=== PATIENT | male | born 1935 | race Caucasian/White ===

== ENCOUNTER → 2020-06-05 09:24 | Outpatient (CLI) | payer MEDICARE, OTHER, SELFPAY ==
[2020-06-06 12:02] LABS: COVID19 Sendout Not Detected (Not Detected)
== END ==
PROVIDERS: Visit Provider Physician Assistant
DX: Z11.59 Encounter for screening for other viral diseases (principal)
CPT/HCPCS: 87635

== ENCOUNTER → 2020-06-06 08:36 | Outpatient (CLI) | payer MEDICARE, OTHER, SELFPAY ==
[2020-06-06 09:08] LABS: Bacteria Urine None Seen; RBC Urine None Seen (0-5/HPF); WBC Urine None Seen (0-5/HPF)
[2020-06-06 10:08] LABS: Add Manual Diff / Slide Review NO; Basophils Absolute Auto 0 /uL (0-100); Basophils Percent Auto 0.8 % (0-2); Eosinophils Absolute Auto 100 /uL (0-450); Eosinophils Percent Auto 2.5 % (2-4); Hematocrit 41.4 % (41-53); Hemoglobin 13.8 g/dL (13.5-17.5); Lymphocytes Absolute Auto 1300 /uL (1100-4500); Lymphocytes Percent Auto 32.3 % (25-40); Mean Corpuscular HGB Conc 33.3 % (30-36); Mean Corpuscular Hemoglobin 32.1 PG (26-34); Mean Corpuscular Volume 96.3 fL (80-100); Monocytes Absolute Auto 400 /uL (0-900); Monocytes Percent Auto 10.5 % (3-14); Neutrophils Absolute Auto 2100 /uL (1500-7000); Neutrophils Percent Auto 53.9 % (50-75); Platelet Count 180 X10^3/uL (150-400); Red Cell Distribution Width 13.2 % (11.6-14.8); White Blood Cell Count 3.9 X10^3/uL (4.5-11.0)
[2020-06-06 10:47] LABS: Alanine Aminotransferase 26 IU/L (<50); Albumin Globulin Ratio 1.4 (1.0-2.8); Alkaline Phosphatase 76 U/L (38-126); Aspartate Aminotransferase 33 IU/L (17-59); BUN Creatinine Ratio 30.4 (6-22); Bilirubin Total 0.9 mg/dL (0.2-1.3); Bilirubin Unconjugated 0.8 mg/dL (0.0-1.1); Blood Urea Nitrogen 24 mg/dL (9-20); Calcium 9.3 mg/dL (8.4-10.2); Carbon Dioxide 30 mmol/L (22-32); Chloride 104 mmol/L (98-107); Cholesterol 210 mg/dL (140-199); Estimated Glomerular Filt Rate > 60.0 mL/min (>60); Globulin 2.8 g/dL (1.7-4.1); Glucose 79 mg/dL (80-110); HDL Cholesterol 56 mg/dL (40-60); HEMOLYSIS < 15 (0-50); LDL Cholesterol Calculated 137 mg/dL (<100); Potassium 4.8 mmol/L (3.4-5.1); Sodium 137 mmol/L (137-145); Total Protein 6.8 g/dL (6.3-8.2); Triglycerides 85 mg/dL (35-150)
[2020-06-06 11:05] LABS: Appearance Urine UA CLEAR; Bilirubin Urine UA NEGATIVE (NEGATIVE); Color Urine UA YELLOW; Glucose Urine UA NEGATIVE (Negative); Ketones Urine UA NEGATIVE (NEGATIVE); Leukocyte Esterase Urine UA NEGATIVE (NEGATIVE); Nitrite Urine UA NEGATIVE (Negative); Occult Blood Urine UA TRACE-LYSED (Negative); Protein Urine UA NEGATIVE (Negative); Specific Gravity Urine UA 1.015 (1.000-1.035); Urobilinogen Urine UA 0.2 E.U./dL (0.2)
[2020-06-06 11:10] LABS: TSH w/ Reflex to FT4 4.22 uIU/mL (0.47-4.68)
[2020-06-06 11:16] LABS: Amorphous Sediment Urine 2+; Culture Indicated Urine Cult Not Indicated
[2020-06-07 08:09] LABS: PSA Ultrasensitive <0.014 ng/mL (0.000-4.000)
== END ==
PROVIDERS: PCP Internal Medicine; Referring Provider Internal Medicine; Visit Provider Internal Medicine
DX: Z00.00 Encounter for general adult medical examination without abnormal findings (principal)
CPT/HCPCS: 36415; 80053; 80061; 80076; 81001; 84153; 84443; 85025

== ENCOUNTER → 2020-09-12 10:34 | Outpatient (CLI) | payer MEDICARE, OTHER, SELFPAY ==
--- NOTE | 2020-09-12 10:36 | DI.RAD.S_ITS ---
PROCEDURE: XR SHOULDER LT MIN 2V INDICATIONS: Left shoulder pain TECHNIQUE: 3 views of the shoulder were acquired. COMPARISON: None. FINDINGS: Bones: No fractures or dislocations. No suspicious bony lesions. Mild acromioclavicular and glenohumeral joint degeneration. Visualized ribs appear intact. Soft tissues: No suspicious soft tissue calcifications. IMPRESSION: No acute osseous abnormalities. Mild degenerative joint disease. Dictated by: Willam Hart M.D. on 09/12/2020 at 13:33 Approved by: Willam Hart M.D. on 09/12/2020 at 13:34
== END ==
PROVIDERS: PCP Family Medicine; Referring Provider Family Medicine; Visit Provider Family Medicine
DX: S46.912A Strain of unspecified muscle, fascia and tendon at shoulder and upper arm level, left arm, initial encounter (principal); M25.512 Pain in left shoulder; M19.012 Primary osteoarthritis, left shoulder
CPT/HCPCS: 73030

== ENCOUNTER → 2020-10-10 10:45 | Outpatient (CLI) | payer MEDICARE, OTHER, SELFPAY ==
--- NOTE | 2020-10-10 11:22 | DIET.PN ---
Dietary Progress Note Assessment: 84y M referred to nutrition for help c his chronic IBS which started 22y ago after parasitic infection. Pt has been having these sx for for 22y, worked out what is bothering him and what is not over the past 5y. Still has sx 4-5x/mo often when accidentally exposed to trigger foods. IBS sx show up the next morning around 11am sometimes all day or even two days which consists of leaking out of the butt diarrhea. Pt also experiences upper abdominal bloating right away after drinking coffee, spices, apples different than the IBS sx foods, often when eating too fast. started getting [employer] but having issues c the spices. cannot tolerate most liquid foods, no fruit juice or most F/V, beans, spices, dairy coffee causes diarrhea but 5h energy or Diet Pepsi do not had prostate cancer c removal but not radiation so has to urinate frequently HT: 6' WT: 148# UBW: 165# prior. Pt would like to be 155# Usual Day: glass of water c acv B(8am): medium ripe banana, quinoa c jazlyn seeds, protein powder, cinnamon c blueberries and nuts (walnuts and almond) and slice of dark bread c blackberry and coconut oil sips Diet Pepsi snack: nuts or pistachios L: dark bread sandwich c trevor, Rene dairy-free cheese, peppered turkey, slice of pear, radishes, coconut oil, sardines, dark chocolate and water but 20min before or after salmon and sardines 2x/w Sn: 1/2 apple, pistachios, cashews, banana D: potatoes or rice c 2x/w salmon, cod, cutlet, asparagus RD Impression: Pt has a good idea of foods which do and do not trigger sx. Pts sx not related to specific FODMAP categories, however pt appears to have difficulty with a variety of sugars (mono-, di-, and oligosaccharides) plus spices (chilis and tumeric mainly). Pts diet has good representation from all food groups and is, besides the daily Diet Pepsi, unrefined without food additives. Nutrition Diagnosis: intolerance to a variety of sugars (mono-, di-, and oligosaccharides) r/t GI dysfunction aeb pt dx c IBS x22y, intolerance to fruit, fruit juices, beans, honey, pt exposure results in intractable diarrhea for up to 48h. Interventions: 1. Continue following his diet. Pt will use FODMAP food list to assess any further intolerances and to work towards identifying amounts of questionable foods which he is able to tolerate. 2. Pt will look at and try Orgain protein powder as an option. Pt was unsure about how different fats supported his cardiovascular health. Encouraged pt to consume olive oil and fatty fish mostly to support healthy weight and cardiovascular health. 3. Encouraged pt to source banana flakes to use to manage diarrhea as this acts like Immodium but will not cause constipation. Monitoring/Evaluations: pt will call in 3w to schedule f/u
== END ==
PROVIDERS: PCP Family Medicine; Referring Provider Family Medicine; Visit Provider Family Medicine
DX: K58.0 Irritable bowel syndrome with diarrhea (principal); Z71.3 Dietary counseling and surveillance
CPT/HCPCS: 97802

== ENCOUNTER → 2021-11-24 09:57 | Outpatient (CLI) | payer MEDICARE, OTHER, SELFPAY ==
[2021-11-24 10:58] LABS: Add Manual Diff / Slide Review NO; Basophils Absolute Auto 0 /uL (0-100); Basophils Percent Auto 0.6 % (0-2); Eosinophils Absolute Auto 100 /uL (0-450); Eosinophils Percent Auto 2.2 % (2-4); Hematocrit 39.4 % (41-53); Hemoglobin 13.2 g/dL (13.5-17.5); Lymphocytes Absolute Auto 1200 /uL (1100-4500); Lymphocytes Percent Auto 27.6 % (25-40); Mean Corpuscular HGB Conc 33.5 % (30-36); Mean Corpuscular Hemoglobin 31.7 PG (26-34); Mean Corpuscular Volume 94.8 fL (80-100); Monocytes Absolute Auto 400 /uL (0-900); Monocytes Percent Auto 9.7 % (3-14); Neutrophils Absolute Auto 2600 /uL (1500-7000); Neutrophils Percent Auto 59.9 % (50-75); Platelet Count 192 X10^3/uL (150-400); Red Blood Cell Count 4.16 X10^6/uL (4.5-5.9); Red Cell Distribution Width 13.7 % (11.6-14.8); White Blood Cell Count 4.3 X10^3/uL (4.5-11.0)
[2021-11-24 12:07] LABS: Alanine Aminotransferase 43 IU/L (<50); Albumin 3.8 g/dL (3.5-5.0); Albumin Globulin Ratio 1.3 (1.0-2.8); Alkaline Phosphatase 74 U/L (38-126); Aspartate Aminotransferase 42 IU/L (17-59); BUN Creatinine Ratio 35.5 (6-22); Bilirubin Total 0.6 mg/dL (0.2-1.3); Blood Urea Nitrogen 27 mg/dL (9-20); Calcium 8.8 mg/dL (8.4-10.2); Carbon Dioxide 29 mmol/L (22-32); Chloride 105 mmol/L (98-107); Cholesterol 225 mg/dL (140-199); Estimated Glomerular Filt Rate > 60.0 mL/min (>60); Glucose 95 mg/dL (80-110); HDL Cholesterol 46 mg/dL (40-60); HEMOLYSIS < 15 (0-50); LDL Cholesterol Calculated 148 mg/dL (<100); Potassium 4.6 mmol/L (3.4-5.1); Sodium 139 mmol/L (137-145); Total Protein 6.8 g/dL (6.3-8.2); Triglycerides 155 mg/dL (35-150)
[2021-11-24 12:38] LABS: TSH w/ Reflex to FT4 2.92 uIU/mL (0.47-4.68)
[2021-11-25 06:34] LABS: PSA Ultrasensitive <0.006 ng/mL (0.000-4.000)
== END ==
PROVIDERS: PCP Family Medicine; Referring Provider Family Medicine; Visit Provider Family Medicine
DX: E78.2 Mixed hyperlipidemia (principal); Z12.5 Encounter for screening for malignant neoplasm of prostate; G89.29 Other chronic pain; K58.0 Irritable bowel syndrome with diarrhea; M19.012 Primary osteoarthritis, left shoulder; M54.9 Dorsalgia, unspecified; Z00.00 Encounter for general adult medical examination without abnormal findings
CPT/HCPCS: 36415; 80053; 80061; 84153; 84443; 85025; G0103

== ENCOUNTER → 2022-12-31 07:03 | Outpatient (CLI) | payer MEDICARE, SELFPAY ==
[2022-12-31 08:27] LABS: Add Manual Diff / Slide Review NO; Basophils Absolute Auto 0 /uL (0-100); Basophils Percent Auto 0.5 % (0-2); Eosinophils Absolute Auto 100 /uL (0-450); Eosinophils Percent Auto 2.4 % (2-4); Hematocrit 40.3 % (41-53); Hemoglobin 13.8 g/dL (13.5-17.5); Lymphocytes Absolute Auto 1400 /uL (1100-4500); Lymphocytes Percent Auto 34.8 % (25-40); Mean Corpuscular HGB Conc 34.3 % (30-36); Mean Corpuscular Hemoglobin 32.6 PG (26-34); Monocytes Absolute Auto 400 /uL (0-900); Monocytes Percent Auto 9.4 % (3-14); Neutrophils Absolute Auto 2100 /uL (1500-7000); Neutrophils Percent Auto 52.9 % (50-75); Platelet Count 170 X10^3/uL (150-400); Red Blood Cell Count 4.24 X10^6/uL (4.5-5.9); Red Cell Distribution Width 13.2 % (11.6-14.8)
[2022-12-31 08:48] LABS: HEMOLYSIS < 15 (0-50); Iron 124 ug/dL (49-181)
[2022-12-31 08:52] LABS: Alanine Aminotransferase 28 IU/L (<50); Albumin 3.9 g/dL (3.5-5.0); Albumin Globulin Ratio 1.4 (1.0-2.8); Alkaline Phosphatase 89 U/L (38-126); Aspartate Aminotransferase 30 IU/L (17-59); BUN Creatinine Ratio 32.5 (6-22); Blood Urea Nitrogen 25 mg/dL (9-20); C-Reactive Protein Quant < 0.5 mg/dL (<1.0); Calcium 8.9 mg/dL (8.4-10.2); Carbon Dioxide 29 mmol/L (22-32); Chloride 104 mmol/L (98-107); Cholesterol 224 mg/dL (140-199); Estimated Glomerular Filt Rate > 60 mL/min (>60); Globulin 2.7 g/dL (1.7-4.1); Glucose 75 mg/dL (80-110); HDL Cholesterol 50 mg/dL (40-60); HEMOLYSIS < 15 (0-50); LDL Cholesterol Calculated 158 mg/dL (<100); Potassium 4.5 mmol/L (3.4-5.1); Sodium 140 mmol/L (137-145); Total Protein 6.6 g/dL (6.3-8.2); Triglycerides 80 mg/dL (35-150)
[2022-12-31 08:58] LABS: Percent Iron Saturation 42 % (20-50); Total Iron Binding Capacity 295 ug/dL (261-462); Transferrin 208 mg/dL (206-381)
[2022-12-31 09:13] LABS: TSH w/ Reflex to FT4 4.13 uIU/mL (0.47-4.68)
[2022-12-31 09:18] LABS: Ferritin 75 ng/mL (18-464)
[2022-12-31 09:19] LABS: Erythrocyte Sedimentation Rate 9 MM/HR (0-15)
[2023-01-01 07:13] LABS: PSA Ultrasensitive <0.006 ng/mL (0.000-4.000)
== END ==
PROVIDERS: PCP Family Medicine; Referring Provider Family Medicine; Visit Provider Family Medicine
DX: D64.9 Anemia, unspecified (principal); E78.5 Hyperlipidemia, unspecified; Z85.46 Personal history of malignant neoplasm of prostate; G89.29 Other chronic pain; K58.9 Irritable bowel syndrome, unspecified; M54.9 Dorsalgia, unspecified; R15.9 Full incontinence of feces
CPT/HCPCS: 36415; 80053; 80061; 82728; 83540; 83550; 84153; 84443; 85025; 85651; 86140

== ENCOUNTER → 2024-02-08 08:43 | Outpatient (CLI) | payer MEDICARE, SELFPAY ==
[2024-02-08 09:38] LABS: Add Manual Diff / Slide Review NO; Basophils Absolute Auto 0 /uL (0-100); Basophils Percent Auto 0.7 % (0-2); Eosinophils Absolute Auto 200 /uL (0-450); Eosinophils Percent Auto 3.6 % (2-4); Hematocrit 41.1 % (41-53); Hemoglobin 13.8 g/dL (13.5-17.5); Lymphocytes Absolute Auto 1700 /uL (1100-4500); Mean Corpuscular HGB Conc 33.6 % (30-36); Mean Corpuscular Hemoglobin 32.2 PG (26-34); Monocytes Absolute Auto 400 /uL (0-900); Monocytes Percent Auto 9.5 % (3-14); Neutrophils Absolute Auto 2100 /uL (1500-7000); Neutrophils Percent Auto 47.2 % (50-75); Platelet Count 177 X10^3/uL (150-400); Red Blood Cell Count 4.28 X10^6/uL (4.5-5.9); Red Cell Distribution Width 13.3 % (11.6-14.8); White Blood Cell Count 4.4 X10^3/uL (4.5-11.0)
[2024-02-08 09:53] LABS: Alanine Aminotransferase 25 IU/L (<50); Albumin Globulin Ratio 1.4 (1.0-2.8); Alkaline Phosphatase 74 U/L (38-126); Aspartate Aminotransferase 35 IU/L (17-59); BUN Creatinine Ratio 31.1 (6-22); Bilirubin Total 0.9 mg/dL (0.2-1.3); Blood Urea Nitrogen 23 mg/dL (9-20); Calcium 8.8 mg/dL (8.4-10.2); Carbon Dioxide 29 mmol/L (22-32); Chloride 108 mmol/L (98-107); Cholesterol 230 mg/dL (140-199); Estimated Glomerular Filt Rate > 60 mL/min (>60); Globulin 2.9 g/dL (1.7-4.1); Glucose 81 mg/dL (80-110); HDL Cholesterol 51 mg/dL (40-60); HEMOLYSIS < 15 (0-50); LDL Cholesterol Calculated 161 mg/dL (<100); Potassium 4.5 mmol/L (3.4-5.1); Sodium 140 mmol/L (137-145); Total Protein 6.9 g/dL (6.3-8.2); Triglycerides 91 mg/dL (35-150)
[2024-02-08 10:24] LABS: TSH w/ Reflex to FT4 2.63 uIU/mL (0.47-4.68)
[2024-02-09 03:36] LABS: Apolipoprotein B 118 mg/dL (<90)
[2024-02-09 07:36] LABS: PSA Ultrasensitive <0.006 ng/mL (0.000-4.000)
== END ==
PROVIDERS: PCP Family Medicine; Referring Provider Family Medicine; Visit Provider Family Medicine
DX: Z00.00 Encounter for general adult medical examination without abnormal findings; Z85.46 Personal history of malignant neoplasm of prostate; E78.5 Hyperlipidemia, unspecified; K58.9 Irritable bowel syndrome, unspecified; Z90.79 Acquired absence of other genital organ(s)
CPT/HCPCS: 36415; 80053; 80061; 82172; 84153; 84443; 85025

== ENCOUNTER → 2024-06-06 07:17 | Outpatient (CLI) | payer MEDICARE, SELFPAY ==
[2024-06-08 15:11] LABS: Deamidated Gliadin Ab IgA 7 units (0-19); Deamidated Gliadin Ab IgG 4 units (0-19); Immunoglobulin A,Qn 142 mg/dL (61-437); t-Transglutaminase IgA <2 U/mL (0-3)
== END ==
PROVIDERS: PCP Family Medicine; Referring Provider Internal Medicine Gastroenterology; Visit Provider Internal Medicine Gastroenterology
DX: R10.84 Generalized abdominal pain (principal)
CPT/HCPCS: 36415; 82784; 83516

== ENCOUNTER → 2025-02-01 08:58 | Outpatient (CLI) | payer MEDICARE, SELFPAY ==
--- NOTE | 2025-02-01 09:00 | DI.RAD.S_ITS ---
PROCEDURE: XR LUMBAR SPINE 2-3V INDICATIONS: Back pain with loss of bowel/bladder control TECHNIQUE: 3 views of the lumbar spine were acquired. COMPARISON: None. FINDINGS: Bones: There are 5 [id number]-[id number] lumbar vertebral bodies. There is trace L3 on L4 anterolisthesis. Otherwise normal spinal alignment. Mild degenerative changes are present throughout the lumbar spine including endplate sclerosis and osteophytosis. There is mild to moderate intervertebral disc space narrowing throughout the lumbar spine. No compression deformities. Soft tissues: Overlying bowel gas pattern is normal. Scattered atheromatous calcifications are present within the abdominal aorta. IMPRESSION: Mild to moderate degenerative change of the lumbar spine. Dictated by: Valentina Sanchez M.D. on 02/01/2025 at 9:27 Approved by: Valentina Sanchez M.D. on 02/01/2025 at 9:28
--- NOTE | 2025-02-01 09:00 | DI.RAD.S_ITS ---
PROCEDURE: XR HIP W PEL IF DONE BILAT 2V INDICATIONS: Back pain with loss of bowel/bladder control TECHNIQUE: AP pelvis with lateral view(s) of the bilateral hip(s). COMPARISON: None. FINDINGS: Bones: No fractures or dislocations. Pelvic ring appears intact. No suspicious bony lesions. Soft tissues: The visualized bowel gas pattern is normal. No suspicious soft tissue calcifications. Scattered phleboliths are visualized within the pelvis. IMPRESSION: No acute bony abnormality. Dictated by: Valentina Sanchez M.D. on 02/01/2025 at 9:26 Approved by: Valentina Sanchez M.D. on 02/01/2025 at 9:27
== END ==
PROVIDERS: PCP Family Medicine; Referring Provider Family Medicine; Visit Provider Family Medicine
DX: M47.816 Spondylosis without myelopathy or radiculopathy, lumbar region (principal); M54.9 Dorsalgia, unspecified; R32 Unspecified urinary incontinence; R53.1 Weakness
CPT/HCPCS: 72100; 73521

== ENCOUNTER → 2025-02-20 07:06 | Outpatient (CLI) | payer MEDICARE, SELFPAY ==
[2025-02-20 08:08] LABS: Add Manual Diff / Slide Review NO; Hematocrit 37.5 % (41-53); Hemoglobin 13.2 g/dL (13.5-17.5); Lymphocytes Absolute Auto 1700 /uL (1100-4500); Mean Corpuscular HGB Conc 35.1 % (30-36); Mean Corpuscular Hemoglobin 33.2 PG (26-34); Mean Corpuscular Volume 94.6 fL (80-100); Platelet Count 173 X10^3/uL (150-400)
[2025-02-20 08:47] LABS: Cholesterol 223 mg/dL (140-199); HDL Cholesterol 47 mg/dL (40-60); Triglycerides 93 mg/dL (35-150)
[2025-02-20 09:18] LABS: TSH w/ Reflex to FT4 3.63 uIU/mL (0.47-4.68)
[2025-02-20 09:21] LABS: Prostate Specific Antigen < 0.064 ng/mL (0.10-4.00)
== END ==
PROVIDERS: PCP Family Medicine; Referring Provider Family Medicine; Visit Provider Family Medicine
DX: Z00.00 Encounter for general adult medical examination without abnormal findings (principal); M54.50 Low back pain, unspecified; E78.2 Mixed hyperlipidemia; D64.9 Anemia, unspecified; Z90.79 Acquired absence of other genital organ(s); G89.29 Other chronic pain
CPT/HCPCS: 36415; 80061; 82172; 84153; 84443; 85025

== ENCOUNTER → 2025-02-21 12:39 | Outpatient (CLI) | payer MEDICARE, SELFPAY ==
--- NOTE | 2025-02-21 12:40 | DI.MRI.S_ITS ---
PROCEDURE: MR LUMBAR SPINE WO CON INDICATIONS: chronic low back pain, bilateral radiculopathy TECHNIQUE: Noncontrast sagittal T1 spin echo and T2 fast echo, sagittal STIR, and T2 fast spin echo through the lumbar spine. In cases with scoliosis, additional coronal T2 fast spin echo may be performed. COMPARISON: None. FINDINGS: Image quality: Excellent. Alignment and Curvature: There is 4 mm anterolisthesis of L3 on L4. Bone Marrow: There is no marrow edema.. No acute vertebral body compression fractures. Spinal Cord: Conus medullaris terminates at the L1 level. Visualized cord demonstrates normal signal and size. Paraspinous Soft Tissues: No paravertebral masses. T12-L1: Normal appearance. L1-L2: Disc desiccation. Diffuse disc bulge and bilateral facet arthrosis with hypertrophy of ligamentum flavum causing mild central canal stenosis and left worse than right bilateral neural foraminal narrowing. L2-L3: There is disc desiccation and loss of disc height. Diffuse disc bulge and bilateral facet arthrosis with hypertrophy of ligamentum flavum causing [id number] central canal stenosis and right worse than left bilateral neural foraminal narrowing. Bulging disc likely contacting right L2 nerve root. L3-L4: Loss of disc height and disc desiccation. Broad-based disc bulge and left lateral disc herniation with bilateral facet arthrosis causing moderate to severe central canal stenosis, severe left-sided neural foraminal narrowing and yebk-xw-daxkvpaw right-sided neural foraminal narrowing. There is likely compression of left L3 and L4 nerve roots. L4-L5: Loss of disc height and disc desiccation. Broad-based disc bulge and bilateral facet arthrosis with hypertrophy of ligamentum flavum causing moderate to severe central canal stenosis and severe bilateral neural foraminal narrowing. Bulging disc likely contacting bilateral L4 nerve roots. L5-S1: Loss of disc height and disc desiccation. Diffuse disc bulge and bilateral facet arthrosis. No significant central canal stenosis. Mild bilateral neural foraminal narrowing is seen with bulging disc likely contacting bilateral L5 nerve roots. IMPRESSION: 1. No marrow edema. No acute vertebral body compression fracture. Grade 1 anterolisthesis of L3 on L4. 2. Multilevel spondylitic changes throughout lumbar spine causing various degrees of central canal stenosis and bilateral neural foraminal narrowing more notably at L3-4 and L4-5 levels as above. 3. No gross paraspinous soft tissue abnormalities. Dictated by: Jeramie Bautista M.D. on 02/22/2025 at 9:00 Approved by: Jeramie Bautista M.D. on 02/22/2025 at 9:07
== END ==
LOC: MRI 12:39
PROVIDERS: PCP Family Medicine; Referring Provider Family Medicine; Visit Provider Family Medicine
DX: M43.16 Spondylolisthesis, lumbar region (principal); M48.061 Spinal stenosis, lumbar region without neurogenic claudication; M48.07 Spinal stenosis, lumbosacral region; M47.816 Spondylosis without myelopathy or radiculopathy, lumbar region; M47.817 Spondylosis without myelopathy or radiculopathy, lumbosacral region; M54.50 Low back pain, unspecified; G89.29 Other chronic pain
CPT/HCPCS: 72148

== ENCOUNTER → 2025-07-24 15:04 | Outpatient (CLI) | payer MEDICARE, SELFPAY ==
--- NOTE | 2025-07-24 15:05 | DI.RAD.S_ITS ---
PROCEDURE: XR FOREARM LT 2V INDICATIONS: pain x 5 days TECHNIQUE: 2 views of the forearm were acquired. COMPARISON: None. FINDINGS: Bones: No fractures or dislocations. No suspicious bony lesions. Soft tissues: No suspicious soft tissue calcifications or masses. IMPRESSION: No acute bony abnormality. Dictated by: Renaldo Cameron M.D. on 07/25/2025 at 17:02 Approved by: Renaldo Cameron M.D. on 07/25/2025 at 17:02
--- NOTE | 2025-07-24 15:05 | DI.RAD.S_ITS ---
PROCEDURE: XR SHOULDER LT MIN 2V INDICATIONS: pain x 5 days TECHNIQUE: 3 views of the shoulder were acquired. COMPARISON: [facility], CR, XR SHOULDER LT MIN 2V, 09/12/2020, 10:58. FINDINGS: Bones: No fractures or dislocations. N moderate acromioclavicular joint and glenohumeral joint osteoarthritic changes are seen. o suspicious bony lesions. Visualized ribs appear intact. Soft tissues: No suspicious soft tissue calcifications. IMPRESSION: No acute shoulder fracture or dislocation. Moderate left shoulder joint osteoarthritis. No gross soft tissue abnormalities. Dictated by: Jeramie Bautista M.D. on 07/24/2025 at 16:21 Approved by: Jeramie Bautista M.D. on 07/24/2025 at 16:21
== END ==
PROVIDERS: PCP Family Medicine; Referring Provider Physician Assistant; Visit Provider Physician Assistant
DX: M19.012 Primary osteoarthritis, left shoulder (principal)
CPT/HCPCS: 73030; 73090

== ENCOUNTER 2025-08-13 08:15 | Outpatient (RCR) | payer MEDICARE, SELFPAY ==
--- NOTE | 2025-07-30 15:55 | PT.OPPOC ---
Physical, Occupational & Speech Therapy At [facility] Current Diagnoses Primary osteoarthritis, left shoulder (07/30/25) Pain in arm, unspecified (07/30/25) Visit Care Team Role Provider Type Karan Duran MD Family Provider Physician Primary Care Provider Specialty: Family Practice Address: [address] [place] [address], [id number] Email: [email or web address] Norris PA-C Attending Provider [employer] Director Referring Provider Specialty: Medical Wound Care Address: [address] [place] [address], [id number] Email: [email or web address] Plan Of Care PT OP: Cervical/Upper Extremity Start: 07/30/25 09:14 Freq: Status: Active Protocol: Document 07/30/25 09:14 JVD (Rec: 07/30/25 15:54 JVD [id number]) Out-Patient Physical Therapy Visit Information Visit Information Visit Type Initial Evaluation Visit Start Time 14:32 Visit Stop Time 15:15 Visit Number 1 Number 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 The pain is the worst at night time; it starts as soon as he lies down on his back. He also has some pain/stiffness on the L side of his neck. Driving a car aggravates his shoulder and working on his computer. He does not get any relief w heat or ice. He thinks hemp cream and his LED light maybe help a little bit. It seems to get some relief when he is walking. Pt states he had a cortisone injection last week. For 2 days afterwards he was in a lot of pain. At night time his pain is 8/10; during the day it is 5/10. The pain radiates all the way down his arm to the back of his wrist. Pt states he works out in a class 2-3 x/week but has been unable to participate since onset. Pt is leaving for [employer] on August 27 for a month. Patient Questionnaires Quick Dash- Upper Extremity Quick Dash UE Score 29.5% Shoulder Goniometric Range of Motion Shoulder Measured in Degrees Right Testing Position Standing Flexion 135 Abduction 125 External Rotation at 65 0 degrees Abduction Internal Rotation L2 Behind Back (text) Left Testing Position Standing Flexion 130 Abduction 125 External Rotation at 62 0 degrees Abduction Internal Rotation T10 Behind Back (text) Special Tests Other Special Tests Special Tests Shoulder: - drop arm: - - HK: - - empty can: + - neer: - - lift off: - - TTP: L infraspinatus Wrist: - lateral epicondylopathy cluster: resisted wrist ext: -, wristed 3rd figner ext: +, passive wrist flex/elbow ext: + - TTP: extensor tendons Shoulder Strength Shoulder Manual Muscle Testing Right Flexion 5 Normal Abduction (C5) 5 Normal External Rotation 5 Normal Internal Rotation 5 Normal Horizontal Abduction 5 Normal Horizontal Adduction 5 Normal Left Flexion 5 Normal Abduction (C5) 4+ Good+ External Rotation 4+ Good+ Internal Rotation 5 Normal Horizontal Abduction 4+ Good+ Horizontal Adduction 5 Normal Comments pain w resisted ER Therapeutic Exercises Standing Exercises flexion Standing Exercise D2 flexion Name Side left Resistance lvl 1 TB Reps/Minutes 10x2 Comments VC to rotate arm during elevation Sh ER Standing Exercise B sh ER Name Side bilateral Resistance lvl 1 TB Reps/Minutes 10x2 Comments cued to reduce load or excursion if having pain tennis ball self-release Standing Exercise posterior cuff, periscapular Name Side left Reps/Minutes 1-3min 2x/d Comments added to HEP Manual Therapy Treatment Consent Patient gave verbal Yes consent for manual treatment Soft Tissue Mobilization Shoulder complex Body Location L infrapsinatus, pec, periscapular musculature Mobilization Type Cross-Friction,Manual Lymphatic Drainage,Rolling, Strumming Intensity/Depth Moderate Body Position Supine Joint Mobilizations GHJ Joint L GHJ Direction inferior, AP Grade III Body Position Supine Self-Care/Home Management Treatment Education Patient Education Body Mechanics,Home Exercise Program,Pain Management, Posture Other Education Pt was educated on the anatomy/physiology, diagnosis, prognosis, POC, HEP Physical Therapy Assessment Rehab Potential Rehabilitation Good Potential Evaluation Complexity Number of Personal 1-2 Factors/ Comorbidities Number of Body 1-2 Systems Impaired Clinical Evolving Presentation at Evaluation Impairments Impairments Activity Tolerance,Functional Activities,Functional Mobility,Pain,Posture,ROM,Soft Tissue Mobility,Strength Goals Washing back Impairment Pt has difficulty reaching behind back in order to wash secondary to pain Short Term Goal (STG Pt will demonstrate function IR/ext reach to T10 in ) order to reach behind back. STG Duration 4 weeks Sleep Impairment Pt is unable to sleep through the night secondary to 8/ 10 L shoulder pain Short Term Goal (STG Pt will be able to sleep through the night w 2 or less ) disruption to sleep secondary to pain STG Duration 4 weeks Skilled Nursing Goal (LTG) Pt will be able to sleep through the night w/o any disruption due to pain LTG Duration 8 weeks Strength Impairment Pt demonstrates limitations in LUE strength secondary to pain Short Term Goal (STG Pt will be able to perform resisted ER w/o increase in ) symptoms STG Duration 6 weeks ROM Impairment Shoulder mobility deficits: sh flex: 125', ER 62', IR: L2 Short Term Goal (STG Pt will demonstrate: ) 140' flexion 140' abduction 65' ER IR reach to T10 STG Duration 4 weeks HEP Impairment Pt does not have sufficient HEP Short Term Goal (STG Pt will perform 4-5 exercises w/o instruction, ) indicating independence w HEP STG Duration 1 week Assessment Summary Assessment Pt is an 89 y/o female who presents to PT w c/o L shoulder and arm pain which onset about a week ago after perform weighted shoulder flexion in supine to relieve his back pain. Pt states the pain does not change a lot w movements and is worst at night time. Pt is having difficulty sleeping due to the pain; He is unable to participate in his exercises classes at this time. Pt demonstrates limited shoulder mobility bilaterally, with slight increase in deficits on L compared to R. Pt reported TTP of infraspinatus and pain w resisted ER. Additionally, pt reports pain along wrist extensors. S&S are consistent w lateral epicondylitis. Pt will benefit from skilled PT to address deficits, reduce pain, and restore PLoF. Physical Therapy Plan Frequency and Duration Frequency of 2x/Week Treatment Duration of 8 treatment (weeks) Plan of Care Start 07/30/25 Date Plan of Care End 09/28/25 Date Therapeutic Interventions Therapeutic Balance Training,Gait Training,Home Exercise Program, Interventions Joint Mobilizations,Manual Therapy,Neuromuscular Re- education,Patient/Caregiver Education,Self-Care/Home Management,Soft Tissue Mobilization,Taping,Therapeutic Activities,Therapeutic Exercises Modalities Cold Pack/Ice Massage,Hot Packs,Infrared Therapy, Ultrasound Next Visit Focus/Plan Next Note Type Treatment Note Next Visit Plan - shoulder mobility: flex, ER, IR - SA and ER strengthening Plan of Care Dates Plan of Care Start Date 07/30/25 Plan of Care End Date 09/28/25 Electronically Signed by: Anabelle Burt, PT 07/30/25 [id number] If you are in agreement with this Plan of Care, please return a signed and dated copy. I have reviewed this Plan of Care and certify that the skilled therapy services above are required to meet the patient?s needs. Physician Signature Date Printed Name and Credentials Clinical Instructor Signature Printed Name and Credentials
--- NOTE | 2025-08-02 17:13 | PT.OTN ---
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 He is sleeping better at night and he has times during the day where he has no pain at all. Therapeutic Exercises Standing Exercises rows Side bilateral Resistance purple Reps/Minutes 10x2 Comments cued to retract and depress scaps IR stretch Standing Exercise IR stretch w strap Name Reps/Minutes 10sec x10 sh extension Resistance blue band Reps/Minutes 10x2 Comments cue to squeeze shoulder blades down and back flexion Standing Exercise 1. SB stretch (10sx10) 2. flex w hor ABD 3. D2 flexion Name Resistance 2. lvl3 band 3. lvl 1 band Reps/Minutes 10 ea Sh ER Standing Exercise anchored IR and ER @0'>90' flex>90' abd Name Resistance green band Reps/Minutes 10x3 Comments cued to reduce load or excursion if having pain Manual Therapy Treatment Consent Patient gave verbal Yes consent for manual treatment Soft Tissue Mobilization Shoulder complex Body Location L infrapsinatus, pec, periscapular musculature Mobilization Type Cross-Friction,Manual Lymphatic Drainage,Rolling, Strumming Intensity/Depth Moderate Body Position Supine Joint Mobilizations GHJ Joint L GHJ Direction inferior, AP Grade III Body Position Supine Physical Therapy Assessment Goals Washing back Impairment Pt has difficulty reaching behind back in order to wash secondary to pain Short Term Goal (STG Pt will demonstrate function IR/ext reach to T10 in ) order to reach behind back. STG Duration 4 weeks Sleep Impairment Pt is unable to sleep through the night secondary to 8/ 10 L shoulder pain Short Term Goal (STG Pt will be able to sleep through the night w 2 or less ) disruption to sleep secondary to pain STG Duration 4 weeks Half-Way Goal (LTG) Pt will be able to sleep through the night w/o any disruption due to pain LTG Duration 8 weeks Strength Impairment Pt demonstrates limitations in LUE strength secondary to pain Short Term Goal (STG Pt will be able to perform resisted ER w/o increase in ) symptoms STG Duration 6 weeks ROM Impairment Shoulder mobility deficits: sh flex: 125', ER 62', IR: L2 Short Term Goal (STG Pt will demonstrate: ) 140' flexion 140' abduction 65' ER IR reach to T10 STG Duration 4 weeks HEP Impairment Pt does not have sufficient HEP Short Term Goal (STG Pt will perform 4-5 exercises w/o instruction, ) indicating independence w HEP STG Duration 1 week Assessment Summary Assessment Pt presents to PT w improvements in sh symptoms. He continues to have TTP of infraspinatus and mild increase in pain w ER. PT had good tolerance to exercise progressions today. He reported no increase in symptoms w any exercises. Physical Therapy Plan Frequency and Duration Frequency of 2x/Week Treatment Duration of 8 treatment (weeks) Plan of Care Start 07/30/25 Date Plan of Care End 09/28/25 Date Next Visit Focus/Plan Next Note Type Treatment Note Next Visit Plan - shoulder mobility: flex, ER, IR - SA and ER strengthening
--- NOTE | 2025-08-05 09:00 | PT.OTN ---
Current Diagnoses Primary osteoarthritis, left shoulder (08/05/25) Pain in arm, unspecified (08/05/25) Physical Therapy Treatment Note PT OP: Cervical/Upper Extremity Start: 07/30/25 09:14 Freq: Status: Active Protocol: Document 08/05/25 08:08 SP (Rec: 08/05/25 08:08 SP [id number]) Out-Patient Physical Therapy Visit Information Visit Information Visit Type Treatment Note Visit Start Time 08:08 Visit Stop Time 09:00 Visit Number 3 Number of UNDERWRITING TECHNICIAN Visits 1 Progress Note Due 08/29/25 OP-PT Subjective Patient Comments Patient Comments Pt reports has been feeling alot better and feels PT treatment and HEP are helping alot. Didn't have any pain in L shld during the day yesterday but when sleeps on his L shld still numb lateral at joint but not down the arm anymore. He states feels pretty good coming in . Cardio Equipment Upper Body Ergometer (UBE) Duration (Minutes) 6 RPM 60 Seat Position 11 Height 3 Other 1 min f & b Therapeutic Exercises Standing Exercises Pec Stretch Standing Exercise instructed end tx to assist upright posture/anterior Name chain flex Side bilateral Equipment Used declined HO Reps/Minutes 30 sec x2 Comments cued 1 ft fwd/bwd, wt shift into fwd LE- good pec stretch Wall Slides Standing Exercise added to HEP declined HO Name Side bilateral Resistance lvl 1 band slight ABD tension Equipment Used (future progress lift off wall) Reps/Minutes 10 reps, 3 sec hold Comments cued TA support back, reach over head elbow straight for progression ROM IR stretch Standing Exercise IR stretch w strap behind back Name Side bilateral Equipment Used towel (good no pain just tight) Reps/Minutes 10sec x10 Comments cued head up & level shld, ed hand across back of pelvis opp hip > up back sh extension Resistance elim ira green latex band (home dark blue and green latex free)- similar stren. Reps/Minutes 15 x2 Comments cue to squeeze shoulder blades down and back- good effor flexion Standing Exercise 1. SB stretch (10sx10) 2. flex w hor ABD 3. D2 flexion Name 4. HABD tension FF Resistance 2. lvl3 band 3. lvl 1 band 4. Lvl 3 band Reps/Minutes 15 ea Comments cuese head up, level shld Sh ER Standing Exercise anchored IR and ER @ 0 deg & 90' abd Name Side left Resistance green band Reps/Minutes 15 reps each direction Comments No pain, tactile cues for maintaining 90deg abd Self-Care/Home Management Treatment Education Patient Education Body Mechanics,Home Exercise Program,Joint Protection, Pain Management,Posture Other Education Instruction how poor rounded postural alignment can affect shoulder, neck and back strain mechanics, showed hand out regarding posture and how gravity adds additive pounds to forward structure compermising. Physical Therapy Assessment Goals Washing back Impairment Pt has difficulty reaching behind back in order to wash secondary to pain Short Term Goal (STG Pt will demonstrate function IR/ext reach to T10 in ) order to reach behind back. STG Duration 4 weeks Sleep Impairment Pt is unable to sleep through the night secondary to 8/ 10 L shoulder pain Short Term Goal (STG Pt will be able to sleep through the night w 2 or less ) disruption to sleep secondary to pain STG Duration 4 weeks Residential Goal (LTG) Pt will be able to sleep through the night w/o any disruption due to pain LTG Duration 8 weeks Strength Impairment Pt demonstrates limitations in LUE strength secondary to pain Short Term Goal (STG Pt will be able to perform resisted ER w/o increase in ) symptoms STG Duration 6 weeks ROM Impairment Shoulder mobility deficits: sh flex: 125', ER 62', IR: L2 Short Term Goal (STG Pt will demonstrate: ) 140' flexion 140' abduction 65' ER IR reach to T10 STG Duration 4 weeks HEP Impairment Pt does not have sufficient HEP Short Term Goal (STG Pt will perform 4-5 exercises w/o instruction, ) indicating independence w HEP STG Duration 1 week Assessment Summary Assessment Pt reports continued improvement in shoulder symptoms reduction, able to reach further up over head with less pain. Tolerated resisted ther ex in front of mirror for self correction with cuing needed. Discussed how postural alignment can affect shoulder and back strain mechanics, showed posture and how gravity adds additive pounds to forward structure. Improved understanding flexibility anterior chain and strengthening posterior chain importance to help maintain positioning. Physical Therapy Plan Frequency and Duration Frequency of 2x/Week Treatment Duration of 8 treatment (weeks) Plan of Care Start 07/30/25 Date Plan of Care End 09/28/25 Date Therapeutic Interventions Therapeutic Balance Training,Gait Training,Home Exercise Program, Interventions Joint Mobilizations,Manual Therapy,Neuromuscular Re- education,Patient/Caregiver Education,Self-Care/Home Management,Soft Tissue Mobilization,Taping,Therapeutic Activities,Therapeutic Exercises Modalities Cold Pack/Ice Massage,Hot Packs,Infrared Therapy, Ultrasound Next Visit Focus/Plan Next Note Type Treatment Note Next Visit Plan - shoulder mobility: flex, ER, IR - SA and ER strengthening Recheck Wall Slides if gained OH ROM to allow lift BLEs off wall.
--- NOTE | 2025-08-13 09:09 | PT.OPDS ---
Current Diagnoses Primary osteoarthritis, left shoulder (08/13/25) Pain in arm, unspecified (08/13/25) Visit Care Team Role Provider Type Karan Duran MD Family Provider Physician Primary Care Provider Specialty: Family Practice Address: [address] [place] [address], [id number] Email: 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 Visit Number Visit Number 4 Discharge Summary PT OP: Cervical/Upper Extremity Start: 07/30/25 09:14 Freq: Status: Active Protocol: Document 08/13/25 08:18 JVD (Rec: 08/13/25 09:09 JVD [id number]) Out-Patient Physical Therapy Visit Information Visit Information Visit Type Discharge Summary Visit Start Time 08:19 Visit Stop Time 09:00 Visit Number 4 Number of TOP KNITTER Visits 0 Progress Note Due 08/29/25 OP-PT Subjective Patient Comments Patient Comments Pt states he is feeling much better. He is still having pain and sometimes numbness in his hands when he is sleeping. Gym Equipment Cable Column (Body Solid) Lat Pull Down Resistance 4 Reps/Time 10x3 seated rows Resistance 4 Reps/Time 10x3 Therapeutic Exercises Standing Exercises OH press Standing Exercise w resisted ER Name Side bilateral Equipment Used lvl 1 Reps/Minutes 10x2 Comments cued to keep core engaged to avoid aggravating LBP SA wall climbs Standing Exercise w TB for resisted ER Name Side bilateral Resistance lvl 1 Reps/Minutes 5 x2 Comments cued to keep arms parallel and forearms on wall Pec Stretch Standing Exercise instructed end tx to assist upright posture/anterior Name chain flex Side bilateral Equipment Used declined HO Reps/Minutes 30 sec x2 Comments cued 1 ft fwd/bwd, wt shift into fwd LE- good pec stretch Wall Slides Standing Exercise w lift off Name Side bilateral Resistance lvl 1 band slight ABD tension Reps/Minutes 10 reps, 3 sec hold Comments cued TA support back, reach over head elbow straight for progression ROM flexion Standing Exercise 1. SB stretch (10sx10) 2. flex w hor ABD 3. D2 flexion Name 4. HABD tension FF Resistance 2. lvl3 band 3. lvl 1 band 4. Lvl 3 band Reps/Minutes 15 ea Comments cuese head up, level shld Manual Therapy Treatment Consent Patient gave verbal Yes consent for manual treatment Soft Tissue Mobilization Shoulder complex Body Location L infrapsinatus, pec, periscapular musculature Mobilization Type Cross-Friction,Manual Lymphatic Drainage,Rolling, Strumming Intensity/Depth Moderate Body Position Supine Joint Mobilizations GHJ Joint L GHJ Direction inferior, AP Grade III Body Position Supine Physical Therapy Assessment Goals Washing back Impairment Pt has difficulty reaching behind back in order to wash secondary to pain Short Term Goal (STG Pt will demonstrate function IR/ext reach to T10 in ) order to reach behind back. STG Duration 4 weeks Half-Way Goal (LTG) 08/13 goal met Sleep Impairment Pt is unable to sleep through the night secondary to 8/ 10 L shoulder pain Short Term Goal (STG Pt will be able to sleep through the night w 2 or less ) disruption to sleep secondary to pain 08/13: pt reports he still has pain when lying on his arm at night STG Duration 4 weeks Half-Way Goal (LTG) Pt will be able to sleep through the night w/o any disruption due to pain LTG Duration 8 weeks Strength Impairment Pt demonstrates limitations in LUE strength secondary to pain Short Term Goal (STG Pt will be able to perform resisted ER w/o increase in ) symptoms 08/13: improving due to improvement in symptoms STG Duration 6 weeks ROM Impairment Shoulder mobility deficits: sh flex: 125', ER 62', IR: L2 Short Term Goal (STG Pt will demonstrate: ) 140' flexion 140' abduction 65' ER IR reach to T10 STG Duration 4 weeks HEP Impairment Pt does not have sufficient HEP Short Term Goal (STG Pt will perform 4-5 exercises w/o instruction, ) indicating independence w HEP 08/03: goal met STG Duration 1 week Assessment Summary Assessment Pt is progressing well. He demonstrates improved functional reach w reduced pain. Pt requires mod cuing to keep core engaged during exercises to avoid aggravating low back. Pt had good response to exercise progressions today. Vikash states he is feeling much better and has all the tools to continue treatment on his own at home. He is leaving town soon and will be gone for a month. Pt would like to discharge his case at this time. Physical Therapy Plan Frequency and Duration Frequency of 2x/Week Treatment Duration of 8 treatment (weeks) Plan of Care Start 07/30/25 Date Plan of Care End 09/28/25 Date
== END 2025-08-14 11:16 | disposition home or self-care (01) ==
LOC: PHYS 08:15
PROVIDERS: Family Provider Family Medicine; PCP Family Medicine; Referring Provider Physician Assistant; Visit Provider Physician Assistant
DX: M19.012 Primary osteoarthritis, left shoulder (principal); M79.603 Pain in arm, unspecified
CPT/HCPCS: 97110; 97140; 97162; 97535